=== PATIENT | male | born 1955 | race Caucasian/White ===

== ENCOUNTER 2018-05-10 09:32 | Day surgery (SDC) | payer BC ==
[2018-05-10] MEDS ORDERED: Dextrose 5%-Lactated Ringers 1,000 ML IV SCH (10:34)
[2018-05-10] MEDS ORDERED: Lidocaine 1% with EPINEPHrine 1:100,000 50 ML MDV ONE (13:01)
[2018-05-10] MEDS ORDERED: Bupivacaine 0.5% 50 ML MDV ONE (13:01)
[2018-05-10] MEDS ORDERED: Midazolam 1 MG/ML 2 ML SDV ONE (13:07)
[2018-05-10] MEDS ORDERED: fentaNYL 100 MCG/2 ML SDV ONE (13:07)
[2018-05-10] MEDS ORDERED: Propofol 200 MG/20 ML SDV ONE ×4 (13:07→14:10)
[2018-05-10] MEDS ORDERED: ceFAZolin 1 GM Vial ONE (13:41)
[2018-05-10] MEDS ORDERED: Ketorolac 60 MG/2 ML SDV ONE (13:43)
[2018-05-10] MEDS ORDERED: Lactated Ringers 1,000 ML ONE (14:13)
[2018-05-10] MEDS ORDERED: Meperidine PF 100 MG/ML Syringe IM ONE (15:04)
[2018-05-10] MEDS ORDERED: hydrOXYzine HCl 100 MG/2 ML SDV IM ONE (15:04)
[2018-05-10] MEDS ORDERED: Acetaminophen/oxyCODONE 325-5 MG Tab PO PRN (15:05)
[2018-05-10] MEDS ORDERED: hydrOXYzine HCl 100 MG/2 ML SDV ONE (15:05)
--- NOTE | 2018-05-14 12:26 | OR ---
DATE OF PROCEDURE: 05/10/2018 PREOPERATIVE DIAGNOSIS: Acute onset of right inguinal hernia. POSTOPERATIVE DIAGNOSES: 1. Incarcerated right inguinal hernia. 2. Iliohypogastric and ilioinguinal nerves at risk for scar entrapment and chronic postoperative pain. OPERATIVE PROCEDURES: 1. Open repair of incarcerated right inguinal hernia with mesh plug technique (99493). 2. Division of right iliohypogastric nerve (60563). 3. Division of right ilioinguinal nerve ([id number]). ANESTHESIA: Local plus IV sedation. ASSISTANTS: Ro Zaragoza PA-C, and LILY Lambert. INDICATION FOR PROCEDURE: The patient has a more or less an acute onset of painful right inguinal hernia. He wished to have this repaired prior to his return to his home in [place]. Plan is to proceed with an open repair of right inguinal hernia with mesh plug technique and we will divide the ilioinguinal and/or iliohypogastric nerves if it appears that these are only being field of the mesh placement to avoid postoperative neuropathic pain were gone over with the patient and , knowing that this results in some area of anesthesia around the area of the incision was reviewed. Additionally, potential risks of the procedure including bleeding, infection, injury to underlying viscera, possible recurrence of the hernia over time, mesh becoming infected and such were reviewed, and the patient wishes to proceed. DETAILS OF PROCEDURE: The patient was taken to the operating room and placed in a supine position. After IV sedation was administered, the right lower abdomen and groin areas were prepped and draped. The right inguinal area including the ilioinguinal nerve was anesthetized with 1% lidocaine mixed with Marcaine, and a standard right inguinal incision made and carried down through the skin and subcutaneous tissue and through the external oblique aponeurosis. Subaponeurotic flaps were then raised superiorly and inferiorly. Dissection of the cord structures revealed no indirect component to the hernia. The patient did have a large broad-based direct component which contained some incarcerated urinary bladder and bladder flap within it. The transversalis fascia floor was then divided, which allowed dissection and reduction of the area of herniation. Once the conjoined tendon was dissected free from the adjacent hernias location medially, superiorly, and laterally, and Seth's ligament identified, an extra large mesh plug was placed into the defect. This was affixed initially to the Seth's ligament with titanium tacking screws and the underside of the conjoined tendon medially, superiorly, and laterally with horizontal mattress sutures of 0 Vicryl stitch. At this point, the free edge of the conjoined tendon was tacked down to the shelving portion of the inguinal ligament with a running 0 Vicryl stitch. This was taken out to the point where the cord structures were present and the degree and extent of it at that point appeared to be lax enough that there would not be any significant venous congestion. At this point, the inguinal floor was then inspected for both the ilioinguinal nerve and hypogastric nerve coming into the field where the flat portion of the mesh plug system would be placed. These were then each sequentially dissected out to the far lateral aspect of the incision and divided there. The flat portion of the mesh plug system was then placed across the inguinal floor and affixed medially to the pubic tubercle with a titanium tacking screw and then sutured lateral to the cord structures with 3-0 Vicryl stitch. The external oblique aponeurosis was then approximated with a 3-0 Vicryl stitch as was Umer fascia and the skin closed with 4-0 Vicryl subcuticular stitch. Dressing was applied. The patient was taken to the recovery room in satisfactory condition. There were no evident complications. Physician assistant chief engineer, Ro Zaragoza, played an essential role in assisting in this case, helping with positioning the patient, retracting structures as needed, as well as suturing and cutting sutures as indicated. Her presence improved patient safety and decreased the operative time. Ronal Nation MD /[id number]
== END 2018-05-10 19:00 | disposition home or self-care (01) ==
LOC: JP.SDS 09:32
PROVIDERS: ATTEND Surgery
DX: K40.30 Unilateral inguinal hernia, with obstruction, without gangrene, not specified as recurrent (principal); Z88.1 Allergy status to other antibiotic agents
CPT/HCPCS: 36415; 49507; 64772; 80053; 83735; 84100; 85027; 93005; A9270; C1781; J0690; J1885; J2175; J2250; J2704; J3010; J3410; J3490; J7042; J7120

== ENCOUNTER 2019-09-01 23:38 | Emergency (ER) | payer OTHER ==
[2019-09-01] MEDS ORDERED: Sodium Chloride 0.9% 1,000 ML IV SCH (23:45)
[2019-09-01] MEDS ORDERED: Diltiazem 100 MG in Sodium Chloride 0.9% 100 ML IV SCH (23:45)
[2019-09-01] MEDS ORDERED: Sodium Chloride 0.9% 10 ML Syringe FLUSH PRN (23:50)
[2019-09-01] MEDS ORDERED: Diltiazem 25 MG/5 ML SDV IVPUSH ONE (23:51)
--- NOTE | 2019-09-01 23:53 | EDM.PDOC ---
ED HPI GENERAL MEDICAL PROBLEM - General Chief Complaint: Cardiovascular Problem Stated Complaint: A FIB Time Seen by Provider: 09/01/19 23:50 Source of Information: Reports: Patient, RN Notes Reviewed History Limitations: Reports: No Limitations - History of Present Illness INITIAL COMMENTS - FREE TEXT/NARRATIVE: 63-year-old gentleman presents emergency department a complaint of palpitations he does have a history of atrial fibrillation with RVR approximately 9 months prior did receive cardioversion as well as chemical treatment for that. He states this particular event started 1 hour prior to presentation he feels a heaviness in his chest he feels the palpitations but no nausea or vomiting no shortness of breath - Related Data Allergies Allergy/AdvReac Type Severity Reaction Status Date / Time ampicillin Allergy Itching Verified 09/01/19 23:52 Home Meds: Home Meds Dextroamphetamine/Amphetamine [Dextroamp-Amphetamin 20 mg Tab] 20 mg PO DAILY PRN 05/10/18 [History] Aspirin 81 mg PO DAILY 08/08/19 [History] Propafenone HCl [Propafenone] 2 tab PO ASDIRECTED 09/01/19 [History] Past Medical History HEENT History: Reports: Sinusitis Cardiovascular History: Reports: Afib Gastrointestinal History: Reports: Colon Polyp Musculoskeletal History: Reports: Back Pain, Chronic, Fracture, Other (See Below ) Other Musculoskeletal History: L knee injury 06/20/19 Psychiatric History: Reports: ADD - Infectious Disease History Infectious Disease History: Reports: Chicken Pox, Measles - Past Surgical History HEENT Surgical History: Reports: Naso-Sinus Surgery, Tonsillectomy GI Surgical History: Reports: Colonoscopy, Polypectomy Musculoskeletal Surgical History: Reports: None Social & Family History - Family History Cardiac: Reports: Angina, [place] Neurological: Reports: Dementia Psychiatric: Reports: Depression - Tobacco Use Smoking Status *Q: Never Smoker - Caffeine Use Caffeine Use: Reports: Coffee ED ROS GENERAL - Review of Systems Review Of Systems: See Below Constitutional: Reports: No Symptoms HEENT: Reports: No Symptoms Respiratory: Reports: No Symptoms Cardiovascular: Reports: Chest Pain, Palpitations GI/Abdominal: Reports: No Symptoms ED EXAM, GENERAL - Physical Exam Exam: See Below Exam Limited By: No Limitations General Appearance: Alert, Mild Distress Neck: Normal Inspection, Supple, Non-Tender, Full Range of Motion Respiratory/Chest: No Respiratory Distress, Lungs Clear, Normal Breath Sounds, No Accessory Muscle Use, Chest Non-Tender Cardiovascular: No Murmur, Tachycardia Course - Vital Signs Last Recorded V/S: Last Vital Signs Temp 98.4 F 09/02/19 00:28 Pulse 89 09/02/19 00:06 Resp 16 09/02/19 01:15 BP 113/66 09/02/19 01:15 Pulse Ox 91 L 09/02/19 01:15 - Orders/Labs/Meds Orders: Active Orders 24 hr Category Date Time Status Cardiac Monitoring [RC] .As Directed Care 09/01/19 23:50 Active EKG Documentation Completion [RC] ASDIRECTED Care 09/01/19 23:51 Active Peripheral IV Care [RC] . DIRECTED Care 09/01/19 23:51 Active Diltiazem [Cardizem] 100 mg Med 09/01/19 23:45 Active Sodium Chloride 0.9% [Normal Saline] 100 ml IV TITRATE Sodium Chloride 0.9% [Normal Saline] 1,000 ml Med 09/01/19 23:45 Active IV ASDIRECTED Sodium Chloride 0.9% [Saline Flush] Med 09/01/19 23:50 Active 10 ml FLUSH ASDIRECTED PRN ED Antiarrhythmia Med Reflex [OM.PC] Stat Oth 09/01/19 23:50 Ordered Peripheral IV Insertion Adult [OM.PC] Stat Oth 09/01/19 23:50 Ordered EKG 12 Lead [EK] Stat Ther 09/01/19 23:51 Ordered Medication Orders Sodium Chloride (Normal Saline) 1,000 mls @ 125 mls/hr IV ASDIRECTED ABDOULAYE Last Admin: 09/02/19 00:06 Dose: 125 mls/hr Diltiazem HCl 100 mg/ Sodium (Chloride) 100 mls @ 5 mls/hr IV TITRATE ABDOULAYE; Protocol Last Titration: 09/02/19 00:44 Dose: 0 mg/hr, 0 mls/hr Admin: 09/02/19 00:06 Dose: 5 mg/hr, 5 mls/hr Sodium Chloride (Saline Flush) 10 ml FLUSH ASDIRECTED PRN PRN Reason: Keep Vein Open Last Admin: 09/02/19 00:06 Dose: 10 ml Labs: Laboratory Tests 09/01/19 09/01/19 09/01/19 Range/Units 23:55 23:55 23:55 WBC 7.3 (4.5-11.0) K/uL RBC 4.69 (4.30-5.90) M/uL Hgb 14.9 (12.0-15.0) g/dL Hct 44.5 (40.0-54.0) % MCV 95 (80-98) fL MCH 32 H (27-31) pg MCHC 34 (32-36) % Plt Count 249 (150-400) K/uL Neut % (Auto) 55 (36-66) % Lymph % (Auto) 31 (24-44) % [place] % (Auto) 9 H (2-6) % Eos % (Auto) 4 (2-4) % Baso % (Auto) 1 (0-1) % PT 10.0 (9.5-12.0) sec INR 0.92 (0.80-1.20) APTT 25.5 L (27.0-36.0) sec Sodium 143 (140-148) mmol/L Potassium 4.0 (3.6-5.2) mmol/L Chloride 105 (100-108) mmol/L Carbon Dioxide 24 (21-32) mmol/L Anion Gap 14.3 H (5.0-14.0) mmol/L BUN 20 H (7-18) mg/dL Creatinine 0.9 (0.8-1.3) mg/dL Est Cr Clr Drug Dosing 88.31 mL/min Estimated GFR (MDRD) > 60 (>60) Glucose 117 H (74-106) mg/dL Calcium 8.8 (8.5-10.1) mg/dL Total Bilirubin 0.4 (0.2-1.0) mg/dL AST 23 (15-37) U/L ALT 39 (12-78) U/L Alkaline Phosphatase 74 (46-116) U/L Troponin I < 0.017 (0.000-0.056) ng/mL Total Protein 7.1 (6.4-8.2) g/dL Albumin 3.9 (3.4-5.0) g/dL Globulin 3.2 (2.3-3.5) g/dL Albumin/Globulin Ratio 1.2 (1.2-2.2) Meds: Medications Generic Name Dose Route Start Last Admin Trade Name Freq PRN Reason Stop Dose Admin Sodium Chloride 1,000 mls @ 125 mls/hr 09/01/19 23:45 09/02/19 00:06 Normal Saline IV 125 mls/hr ASDIRECTED ABDOULAYE Administration Diltiazem HCl 100 mg/ Sodium 100 mls @ 5 mls/hr 09/01/19 23:45 09/02/19 00:44 Chloride IV 0 mg/hr TITRATE ABDOULAYE 0 mls/hr Titration Protocol 5 MG/HR Sodium Chloride 10 ml 09/01/19 23:50 09/02/19 00:06 Saline Flush FLUSH 10 ml ASDIRECTED PRN Administration Keep Vein Open Discontinued Medications Generic Name Dose Route Start Last Admin Trade Name Freq PRN Reason Stop Dose Admin Diltiazem HCl 25 mg 09/01/19 23:51 09/02/19 00:06 Diltiazem IVPUSH 09/01/19 23:52 25 mg ONETIME ONE Administration Departure - Departure Time of Disposition: 02:17 Disposition: Home, Self-Care 01 Condition: Fair Clinical Impression: Atrial fibrillation with RVR Instructions: Atrial Fibrillation Referrals: PCP,None [Primary Care Provider] - Forms: ED Department Discharge Additional Instructions: Continue continue with your daily aspirin try the Cardizem LA 1 tablet once a day 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 or return to the emergency department worsening of symptoms Sepsis Event Note - Focused Exam Vital Signs: Vital Signs Temp Pulse Resp BP Pulse Ox 09/02/19 01:15 16 113/66 91 L 09/02/19 00:46 12 125/71 95 09/02/19 00:28 98.4 F 17 123/63 96 09/02/19 00:06 89 16 113/59 L 95 09/01/19 23:45 98.4 F 151 H 17 113/60 91 L Date Exam was Performed: 09/02/19 Time Exam was Performed: 02:16 - My Orders Last 24 Hours: My Active Orders 09/01/19 23:45 Diltiazem [Cardizem] 100 mg Sodium Chloride 0.9% [Normal Saline] 100 ml IV TITRATE Sodium Chloride 0.9% [Normal Saline] 1,000 ml IV ASDIRECTED 09/01/19 23:50 Cardiac Monitoring [RC] .As Directed Sodium Chloride 0.9% [Saline Flush] 10 ml FLUSH ASDIRECTED PRN ED Antiarrhythmia Med Reflex [OM.PC] Stat Peripheral IV Insertion Adult [OM.PC] Stat 09/01/19 23:51 EKG Documentation Completion [RC] ASDIRECTED Peripheral IV Care [RC] . DIRECTED EKG 12 Lead [EK] Stat - Assessment/Plan Last 24 Hours: My Active Orders 09/01/19 23:45 Diltiazem [Cardizem] 100 mg Sodium Chloride 0.9% [Normal Saline] 100 ml IV TITRATE Sodium Chloride 0.9% [Normal Saline] 1,000 ml IV ASDIRECTED 09/01/19 23:50 Cardiac Monitoring [RC] .As Directed Sodium Chloride 0.9% [Saline Flush] 10 ml FLUSH ASDIRECTED PRN ED Antiarrhythmia Med Reflex [OM.PC] Stat Peripheral IV Insertion Adult [OM.PC] Stat 09/01/19 23:51 EKG Documentation Completion [RC] ASDIRECTED Peripheral IV Care [RC] . DIRECTED EKG 12 Lead [EK] Stat Plan: Assessment Acuity = acute Site and laterality = atrial fibrillation with rapid ventricular response with conversion to sinus rhythm Etiology = unknown Manifestations = palpitations now resolved Location of injury = Home Lab values = CBC, CMP, troponin all negative initial EKG demonstrates rapid ventricular response postconversion shows normal sinus rhythm no signs of ST elevation or depression Plan He remained in sinus rhythm after the Cardizem drip was turned off for about an hour and a half prescription written for Cardizem LA 120 mg 1 tab p.o. daily he is got a follow-up with cardiology upon return home continue baby aspirin for anticoagulant chads score was 0 This note was dictated using [employer] voice recognition software please call with any questions on syntax or grammar.
== END 2019-09-02 02:33 | disposition home or self-care (01) ==
LOC: JP.ED 23:38
DX: I48.91 Unspecified atrial fibrillation (principal); Z88.1 Allergy status to other antibiotic agents; Z79.82 Long term (current) use of aspirin; Z79.899 Other long term (current) drug therapy
CPT/HCPCS: 36415; 80053; 84484; 85025; 85610; 85730; 93005; 96365; 96366; 96376; 99285; J3490; J7030; J7050

== ENCOUNTER 2020-01-04 23:00 | Inpatient (IN) | payer OTHER ==
--- NOTE | 2020-01-05 00:09 | EDM.PDOC ---
ED HPI GENERAL MEDICAL PROBLEM - General Chief Complaint: Cardiovascular Problem Stated Complaint: AFIB Time Seen by Provider: 01/05/20 00:05 Source of Information: Reports: Patient, Family, Old Records, RN History Limitations: Reports: No Limitations - History of Present Illness INITIAL COMMENTS - FREE TEXT/NARRATIVE: 64 yo male with a pHx of known afib presents back in afib with RVR. He is very confident that the rapid HR began about 10 pm tonight. He denies CP or SOB or dizziness. He took extra doses of his propafenone tonight without benefit. Drinks on average 3 drinks of alcohol per night. 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: Other Medication(s), Other (see below) (See HPI) - Related Data Allergies Allergy/AdvReac Type Severity Reaction Status Date / Time ampicillin Allergy Itching Verified 09/01/19 23:52 Home Meds: Home Meds Dextroamphetamine/Amphetamine [Dextroamp-Amphetamin 20 mg Tab] 20 mg PO DAILY PRN 05/10/18 [History] Aspirin 81 mg PO DAILY 08/08/19 [History] Propafenone HCl [Propafenone] 2 tab PO ASDIRECTED PRN 09/01/19 [History] Diltiazem [Cardizem] 120 mg PO ASDIRECTED 01/04/20 [History] Past Medical History HEENT History: Reports: Sinusitis Cardiovascular History: Reports: Afib Gastrointestinal History: Reports: Colon Polyp Musculoskeletal History: Reports: Back Pain, Chronic, Fracture, Other (See Below) Other Musculoskeletal History: L knee injury 06/20/19 Psychiatric History: Reports: ADD - Infectious Disease History Infectious Disease History: Reports: Chicken Pox, Measles, Mumps - Past Surgical History HEENT Surgical History: Reports: Naso-Sinus Surgery, Tonsillectomy GI Surgical History: Reports: Colonoscopy, Polypectomy Musculoskeletal Surgical History: Reports: None Social & Family History - Family History Cardiac: Reports: Angina, [place] Neurological: Reports: Dementia Psychiatric: Reports: Depression - Tobacco Use Smoking Status *Q: Never Smoker Second Hand Smoke Exposure: No - Caffeine Use Caffeine Use: Reports: Coffee Other Caffeine Use: 1 cup daily - Alcohol Use Days Per Week of Alcohol Use: 7 Number of Drinks Per Day: 3 Total Drinks Per Week: 21 Date of Last Drink: 01/04/20 Time of Last Drink: 22:00 - Recreational Drug Use Recreational Drug Use: No ED ROS GENERAL - Review of Systems Review Of Systems: See Below Constitutional: Reports: No Symptoms HEENT: Reports: No Symptoms Respiratory: Reports: No Symptoms Cardiovascular: Reports: Palpitations GI/Abdominal: Reports: No Symptoms : Reports: No Symptoms Musculoskeletal: Reports: No Symptoms Skin: Reports: No Symptoms Neurological: Reports: No Symptoms ED EXAM, GENERAL - Physical Exam Exam: See Below Exam Limited By: No Limitations General Appearance: Alert, WD/WN, No Apparent Distress Eye Exam: Bilateral Eye: Normal Inspection Ears: Normal External Exam, Normal Canal, Hearing Grossly Normal, Normal TMs Ear Exam: Bilateral Ear: Auricle Normal, Canal Normal Nose: Normal Inspection, No Blood Throat/Mouth: Normal Inspection, Normal Lips, Normal Oropharynx, Normal Voice, No Airway Compromise Head: Atraumatic, Normocephalic Neck: Normal Inspection Respiratory/Chest: No Respiratory Distress, Lungs Clear, Normal Breath Sounds, No Accessory Muscle Use Cardiovascular: No Edema, Tachycardia, Irregularly Irregular GI/Abdominal: Normal Bowel Sounds, Soft, Non-Tender, No Distention Back Exam: Normal Inspection. No: CVA Tenderness (R), CVA Tenderness (L) Extremities: Normal Inspection, Normal Range of Motion, Non-Tender, No Pedal Edema Neurological: Alert, Oriented, CN II-XII Intact, Normal Cognition, No Motor/Sensory Deficits Psychiatric: Normal Affect, Normal Mood Skin Exam: Warm, Dry, Intact, Normal Color, No Rash EKG INTERPRETATION EKG Date: 01/05/20 Time: 23:15 Rhythm: A-Fib Rate (Beats/Min): 135 [place]: Normal P-Wave: Absent QRS: Normal ST-T: Normal QT: Prolonged Comparison: Change From Previous EKG (last EKG showed NSR) Course - Vital Signs Last Recorded V/S: Last Vital Signs Temp 36.2 C 01/05/20 00:02 Pulse 140 H 01/05/20 00:02 Resp 19 01/05/20 00:02 BP 104/76 01/05/20 00:02 Pulse Ox 93 L 01/05/20 00:02 - Orders/Labs/Meds Orders: Active Orders 24 hr Category Date Time Status Cardiac Monitoring [RC] .As Directed Care 01/05/20 00:07 Active BASIC METABOLIC PANEL,BMP [CHEM] Stat Lab 01/05/20 00:20 Results TROPONIN I [CHEM] Stat Lab 01/05/20 00:20 Results TSH ULTRASENSITIVE [CHEM] Stat Lab 01/05/20 00:20 Results Sodium Chloride 0.9% [Saline Flush] Med 01/05/20 00:18 Active 10 ml FLUSH ASDIRECTED PRN Saline Lock Insert [OM.PC] Routine Oth 01/05/20 00:18 Ordered Medication Orders Sodium Chloride (Saline Flush) 10 ml FLUSH ASDIRECTED PRN PRN Reason: Keep Vein Open Labs: Laboratory Tests 01/05/20 01/05/20 Range/Units 00:20 00:20 WBC 7.2 (4.5-11.0) K/uL RBC 4.46 (4.30-5.90) M/uL Hgb 14.1 (12.0-15.0) g/dL Hct 42.3 (40.0-54.0) % MCV 95 (80-98) fL MCH 32 H (27-31) pg MCHC 33 (32-36) % Plt Count 212 (150-400) K/uL Sodium 139 L (140-148) mmol/L Potassium 3.6 (3.6-5.2) mmol/L Chloride 103 (100-108) mmol/L Carbon Dioxide 24 (21-32) mmol/L Anion Gap 15.6 H (5.0-14.0) mmol/L BUN 20 H (7-18) mg/dL Creatinine 0.9 (0.8-1.3) mg/dL Est Cr Clr Drug Dosing 87.15 mL/min Estimated GFR (MDRD) > 60 (>60) Glucose 117 H (74-106) mg/dL Calcium 9.0 (8.5-10.1) mg/dL Troponin I < 0.017 (0.000-0.056) ng/mL Meds: Medications Generic Name Dose Route Start Last Admin Trade Name Freq PRN Reason Stop Dose Admin Sodium Chloride 10 ml 01/05/20 00:18 Saline Flush FLUSH ASDIRECTED PRN Keep Vein Open Discontinued Medications Generic Name Dose Route Start Last Admin Trade Name Jaretq PRN Reason Stop Dose Admin Diltiazem HCl 25 mg 01/05/20 00:52 Diltiazem IVPUSH 01/05/20 00:53 ONETIME ONE Midazolam HCl 5 mg 01/05/20 00:22 Versed 1 Mg/Ml IVPUSH 01/05/20 00:23 ONETIME ONE Midazolam HCl 5 mg 01/05/20 00:36 Versed 1 Mg/Ml IVPUSH 01/05/20 00:37 ONETIME ONE - Re-Assessments/Exams Free Text/Narrative Re-Assessment/Exam: 01/05/20 00:53 Was successfully cardioverted to NSR, but within about 5 min converted back to afib. Versed 5 mg IV used for sedation. Dr. Jerez here for the cardioversion procedure. Will admit for rate control with diltiazem. 01/05/20 00:55 Departure - Departure Time of Disposition: 01:00 Disposition: Admitted As Inpatient 65 Condition: Fair Clinical Impression: Atrial fibrillation with RVR Referrals: PCP,None [Primary Care Provider] - Forms: ED Department Discharge Sepsis Event Note (ED) - Evaluation Sepsis Screening Result: No Definite Risk - Focused Exam Vital Signs: Vital Signs Temp Pulse Resp BP Pulse Ox 01/05/20 00:02 36.2 C 140 H 19 104/76 93 L 01/04/20 23:51 36.2 C 140 H 19 104/76 93 L - My Orders Last 24 Hours: My Active Orders 01/05/20 00:07 Cardiac Monitoring [RC] .As Directed 01/05/20 00:18 Sodium Chloride 0.9% [Saline Flush] 10 ml FLUSH ASDIRECTED PRN Saline Lock Insert [OM.PC] Routine 01/05/20 00:20 BASIC METABOLIC PANEL,BMP [CHEM] Stat TROPONIN I [CHEM] Stat TSH ULTRASENSITIVE [CHEM] Stat - Assessment/Plan Last 24 Hours: My Active Orders 01/05/20 00:07 Cardiac Monitoring [RC] .As Directed 01/05/20 00:18 Sodium Chloride 0.9% [Saline Flush] 10 ml FLUSH ASDIRECTED PRN Saline Lock Insert [OM.PC] Routine 10/04/20 00:20 BASIC METABOLIC PANEL,BMP [CHEM] Stat TROPONIN I [CHEM] Stat TSH ULTRASENSITIVE [CHEM] Stat
[2020-01-05] MEDS ORDERED: Sodium Chloride 0.9% 10 ML Syringe FLUSH PRN ×2 (00:18→02:36)
[2020-01-05] MEDS ORDERED: Midazolam 1 MG/ML 5 ML SDV IVPUSH ONE ×2 (00:22→00:36)
[2020-01-05] MEDS ORDERED: Diltiazem 25 MG/5 ML SDV IVPUSH ONE (00:52)
[2020-01-05] MEDS ORDERED: Diltiazem 100 MG in Sodium Chloride 0.9% 100 ML IV SCH (02:00)
--- NOTE | 2020-01-05 02:08 | PCM.HP.2 ---
H&P History of Present Illness - General Date of Service: 01/05/20 Admit Problem/Dx: Admission Diagnosis/Problem Admission Diagnosis/Problem Atrial fibrillation Source of Information: Family, Provider, RN Notes Reviewed History Limitations: Reports: No Limitations - History of Present Illness Initial Comments - Free Text/Narative: Mr. Rowan is a 64-year-old gentleman who was admitted through the emergency department with palpitations secondary to atrial fibrillation with rapid ventricular response. He has had a history of atrial fibrillation, 2 previous episodes. He does take diltiazem long-acting 120 mg every other day. Patient is currently sedated after attempted cardioversion and unable to provide meaningful information concerning her recent symptoms or events. History is obtained from his who is present. She reports that he had no significant symptoms during the day but did note onset of rapid heart rate this evening. On evaluation in the emergency department he was noted to be in atrial fibrillation with rapid ventricular response. He did undergo attempted electrical cardioversion and was successfully cardioverted to sinus rhythm, shortly th ereafter he returned to atrial fibrillation with rapid ventricular response. He has been given 20 mg of diltiazem IV and heart rate has improved although he is remained in atrial fibrillation. There is been no recent symptoms of chest pain or pressure dyspnea PND orthopnea peripheral edema syncope. - Related Data Allergies/Adverse Reactions: Allergies Allergy/AdvReac Type Severity Reaction Status Date / Time ampicillin Allergy Itching Verified 09/01/19 23:52 Home Medications: Home Meds Dextroamphetamine/Amphetamine [Dextroamp-Amphetamin 20 mg Tab] 20 mg PO DAILY PRN 05/10/18 [History] Aspirin 81 mg PO DAILY 08/08/19 [History] Propafenone HCl [Propafenone] 2 tab PO ASDIRECTED PRN 09/01/19 [History] Diltiazem [Cardizem] 120 mg PO ASDIRECTED 01/04/20 [History] Past Medical History HEENT History: Reports: Sinusitis Cardiovascular History: Reports: Afib Gastrointestinal History: Reports: Colon Polyp Musculoskeletal History: Reports: Back Pain, Chronic, Fracture, Other (See Below) Other Musculoskeletal History: L knee injury 06/20/19 Psychiatric History: Reports: ADD - Infectious Disease History Infectious Disease History: Reports: Chicken Pox, Measles, Mumps - Past Surgical History HEENT Surgical History: Reports: Naso-Sinus Surgery, Tonsillectomy GI Surgical History: Reports: Colonoscopy, Polypectomy Musculoskeletal Surgical History: Reports: None Social & Family History - Family History Cardiac: Reports: Ang[place], [place] Neurological: Reports: Dementia Psychiatric: Reports: Depression - Tobacco Use Smoking Status *Q: Never Smoker Second Hand Smoke Exposure: No - Caffeine Use Caffeine Use: Reports: Coffee Other Caffeine Use: 1 cup daily - Alcohol Use Days Per Week of Alcohol Use: 7 Number of Drinks Per Day: 3 Total Drinks Per Week: 21 Date of Last Drink: 01/04/20 Time of Last Drink: 22:00 - Recreational Drug Use Recreational Drug Use: No H&P Review of Systems - Review of Systems: Review Of Systems: See Below General: Reports: ROS unobtainable (Secondary to sedation) Exam - Exam Exam: See Below - Vital Signs Vital Signs: Last Vital Signs Temp 97.1 F 01/05/20 00:02 Pulse 140 H 01/05/20 00:02 Resp 19 01/05/20 00:02 BP 104/76 01/05/20 00:02 Pulse Ox 93 L 01/05/20 00:02 Weight: 208 lb 8.917 oz - Exam Quality Assessment: Supplemental Oxygen, DVT Prophylaxis General: Sedated, Lethargic HEENT: Conjunctiva Clear, Mucosa Moist & [place], Normal Nasal Septum, Posterior Pharynx Clear, Pupils Equal Neck: Supple, Trachea Midline, +2 Carotid Pulse wo Bruit Lungs: Clear to Auscultation, Normal Respiratory Effort Cardiovascular: Irregular Rhythm, Tachycardia. No: Systolic Murmur, Diastolic Murmur GI/Abdominal Exam: Soft, Non-Tender, No Organomegaly, No Distention Back Exam: Normal Inspection, Full Range of Motion Extremities: Non-Tender, No Pedal Edema Skin: Warm, Dry, Intact Neurological: Cranial Nerves Intact Neuro Extensive - Mental Status: Alert, Oriented x3, Normal Mood/Affect, Normal Cognition, Memory Intact - Patient Data Lab Results Last 24 hrs: Laboratory Results - last 24 hr 01/05/20 01/05/20 Range/Units 00: 00:20 WBC 7.2 (4.5-11.0) K/uL RBC 4.46 (4.30-5.90) M/uL Hgb 14.1 (12.0-15.0) g/dL Hct 42.3 (40.0-54.0) % MCV 95 (80-98) fL MCH 32 H (27-31) pg MCHC 33 (32-36) % Plt Count 212 (150-400) K/uL Sodium 139 L (140-148) mmol/L Potassium 3.6 (3.6-5.2) mmol/L Chloride 103 (100-108) mmol/L Carbon Dioxide 24 (21-32) mmol/L Anion Gap 15.6 H (5.0-14.0) mmol/L BUN 20 H (7-18) mg/dL Creatinine 0.9 (0.8-1.3) mg/dL Est Cr Clr Drug Dosing 87.15 mL/min Estimated GFR (MDRD) > 60 (>60) Glucose 117 H (74-106) mg/dL Calcium 9.0 (8.5-10.1) mg/dL Troponin I < 0.017 (0.000-0.056) ng/mL TSH, Ultra Sensitive 4.276 H (0.358-3.740) uIU/mL Result Diagrams: 01/05/20 00:20 01/05/20 00:20 Sepsis Event Note - Evaluation Sepsis Screening Result: No Definite Risk - Focused Exam Vital Signs: Vital Signs Temp Pulse Resp BP Pulse Ox 01/05/20 00:02 97.1 F 140 H 19 104/76 93 L 01/04/20 23:51 97.1 F 140 H 19 104/76 93 L *Q Meaningful Use (ADM) - VTE Risk Assess *Q Each Risk Factor Represents 1 Point: Obesity ( BMI > 25 kg/m2) Total Score 1 Point Risk Factors: 1 Each Risk Factor Represents 2 Points: Age 60 - 74 Years Total Score 2 Point Risk Factors: 2 Each Risk Factor Represents 3 Points: None Total Score 3 Point Risk Factors: 0 Each Risk Factor Represents 5 Points: None Total Score 5 Point Risk Factors: 0 Venous Thromboembolism Risk Factor Score *Q: 3 Problem List Initiated/Reviewed/Updated: Yes Orders Last 24hrs: Active Orders 24 hr Category Date Time Status Patient Status Manage Transfer [TRANSFER] Routine ADT 01/05/20 01:50 Ordered Cardiac Monitoring [RC] .As Directed Care 01/05/20 00:07 Active Diltiazem [Cardizem] 100 mg Med 01/05/20 02:00 Ordered Sodium Chloride 0.9% [Normal Saline] 100 ml IV TITRATE Sodium Chloride 0.9% [Saline Flush] Med 01/05/20 00:18 Active 10 ml FLUSH ASDIRECTED PRN Saline Lock Insert [OM.PC] Routine Oth 01/05/20 00:18 Ordered Resuscitation Status Routine Resus Stat 01/05/20 01:52 Ordered Medication Orders Diltiazem HCl 100 mg/ Sodium (Chloride) 100 mls @ 5 mls/hr IV TITRATE ABODULAYE; Protocol Sodium Chloride (Saline Flush) 10 ml FLUSH ASDIRECTED PRN PRN Reason: Keep Vein Open Assessment/Plan Comment:: ASSESSMENT AND PLAN ATRIAL FIBRILLATION WITH RAPID VENTRICULAR RESPONSE-this is his third episode over the past 10 months. He is on low-dose long-acting diltiazem every other day. Attempted cardioversion in the emergency department failed, and he went back into atrial fibrillation. Calculated [id number] score is 1. -Diltiazem 20 mg IV given in the emergency department -Continuous infusion of diltiazem per protocol -N.p.o. for possible cardioversion in a.m. -Outpatient follow-up with EP cardiology SLEEP APNEA-he has had a recent sleep study documenting sleep apnea, but has not yet started on CPAP. MAINTENANCE ISSUES -DVT prophylaxis; Lovenox 40 mg subcu daily -GI prophylaxis; not indicated -Verduzco catheter; not indicated -Nutrition; n.p.o. until a.m. -Nicotine dependence; not required CODE STATUS-FULL CODE ADMISSION STATUS-patient will be admitted to inpatient status, expect at least a 2 night hospital stay for evaluation and management of problems as outlined above. At the time of this admission I do not reasonably expected evaluation and management of this problem will require more than a 96 hour hospital stay. DISPOSITION-anticipate discharge to home after the hospital stay. PRIMARY CARE PROVIDER-Dr. Mo - Mortality Measure Prognosis:: Good
[2020-01-05] MEDS ORDERED: Polyethylene Glycol 3350 Powder 17 GM Packet PO PRN (02:36)
[2020-01-05] MEDS ORDERED: Sodium Chloride 0.9% 1,000 ML IV SCH (02:36)
[2020-01-05] MEDS ORDERED: Acetaminophen 325 MG Tab PO PRN (02:36)
[2020-01-05] MEDS ORDERED: Ondansetron 4 MG/2 ML SDV IV PRN (02:36)
[2020-01-05] MEDS ORDERED: Aspirin 81 MG Tab.Chew PO SCH (09:00)
[2020-01-05] MEDS ORDERED: Enoxaparin 40 MG/0.4 ML Syringe SUBCUT SCH (09:00)
--- NOTE | 2020-01-05 09:17 | PCM.DCSUM1 ---
Discharge Summary - Hospital Course Brief History: Mr. Rowan is a 64-year-old gentleman who was admitted through the emergency department with palpitations secondary to atrial fibrillation with rapid ventricular response. - Discharge Data Discharge Date: 01/05/20 Discharge Disposition: Home, Self-Care 01 Condition: Good - Referral to Home Health Primary Care Physician: PCP None - Discharge Diagnosis/Problem(s) (1) Atrial fibrillation with RVR SNOMED Code(s): 420327611549688 ICD Code: I48.91 - UNSPECIFIED ATRIAL FIBRILLATION Status: Acute Current Visit: Yes - Patient Summary/Data Hospital Course: Mr. Rowan is a 64-year-old gentleman who was admitted through the emergency department with palpitations secondary to atrial fibrillation with rapid ventricular response. He has had a history of atrial fibrillation, 2 previous episodes. He does take diltiazem long-acting 120 mg every other day. Patient is currently sedated after attempted cardioversion and unable to provide meaningful information concerning recent symptoms or events. History is obtained from his who is present. She reports that he had no significant symptoms during the day but did note onset of rapid heart rate this evening. On evaluation in the emergency department he was noted to be in atrial fibrillation with rapid ventricular response. He did undergo attempted electrical cardioversion and was successfully cardioverted to sinus rhythm, shortly thereafter he returned to atrial fibrillation with rapid ventricular response. He has been given 20 mg of diltiazem IV and heart rate has improved although he is remained in atrial fibrillation. There is been no recent symptoms of chest pain or pressure dyspnea PND orthopnea peripheral edema syncope. He after he received diltiazem bolus IV he converted to sinus rhythm and remained in sinus rhythm through the duration of his hospitalization. He was feeling well in the morning of discharge other than some ongoing nasal congestion likely related to allergies. Activity will be as tolerated and he will resume his usual diet. He is encouraged to decrease or stop alcohol intake and he is proceeding with management of his sleep apnea will be getting CPAP later this month. He will follow-up with his voting machine mechanic by phone tomorrow. He will increase his dose of diltiazem CD to 120 mg daily. - Patient Instructions Diet: Usual Diet as Tolerated Activity: As Tolerated Other/Special Instructions: Patient will follow-up with his voting machine mechanic by phone tomorrow - Discharge Plan *PRESCRIPTION DRUG MONITORING PROGRAM REVIEWED*: Not Applicable *COPY OF PRESCRIPTION DRUG MONITORING REPORT IN PATIENT [place]QUIDEA: Not Applicable Home Medications: Home Meds Dextroamphetamine/Amphetamine [Dextroamp-Amphetamin 20 mg Tab] 20 mg PO DAILY PRN 05/10/18 [History] Aspirin 81 mg PO DAILY 08/08/19 [History] Propafenone HCl [Propafenone] 2 tab PO ASDIRECTED PRN 09/01/19 [History] Diltiazem [Cardizem] 120 mg PO DAILY #0 01/05/20 [Rx] Referrals: Gladis Mo DO [Physician] - - Discharge Summary/Plan Comment DC Time >30 min.: No - Patient Data Vitals - Most Recent: Last Vital Signs Temp 98 F 01/05/20 08:00 Pulse 140 H 01/05/20 00:02 Resp 12 01/05/20 08:00 BP 119/69 01/05/20 08:00 Pulse Ox 98 01/05/20 08:00 Weight - Most Recent: 208 lb 8.917 oz Lab Results - Last 24 hrs: Laboratory Results - last 24 hr 01/05/20 01/05/20 01/05/20 Range/Units 00:20 00:20 05:11 WBC 7.2 5.4 (4.5-11.0) K/uL RBC 4.46 4.21 L (4.30-5.90) M/uL Hgb 14.1 12.9 (12.0-15.0) g/dL Hct 42.3 40.1 (40.0-54.0) % MCV 95 95 (80-98) fL MCH 32 H 31 (27-31) pg MCHC 33 32 (32-36) % Plt Count 212 198 (150-400) K/uL Neut % (Auto) 58 (36-66) % Lymph % (Auto) 28 (24-44) % [place] % (Auto) 9 H (2-6) % Eos % (Auto) 4 (2-4) % Baso % (Auto) 1 (0-1) % Sodium 139 L (140-148) mmol/L Potassium 3.6 (3.6-5.2) mmol/L Chloride 103 (100-108) mmol/L Carbon Dioxide 24 (21-32) mmol/L Anion Gap 15.6 H (5.0-14.0) mmol/L BUN 20 H (7-18) mg/dL Creatinine 0.9 (0.8-1.3) mg/dL Est Cr Clr Drug Dosing 87.15 mL/min Estimated GFR (MDRD) > 60 (>60) Glucose 117 H (74-106) mg/dL Calcium 9.0 (8.5-10.1) mg/dL Magnesium (1.8-2.4) mg/dL Troponin I < 0.017 (0.000-0.056) ng/mL TSH, Ultra Sensitive 4.276 H (0.358-3.740) uIU/mL 01/05/20 Range/Units 05:14 WBC (4.5-11.0) K/uL RBC (4.30-5.90) M/uL Hgb (12.0-15.0) g/dL Hct (40.0-54.0) % MCV (80-98) fL MCH (27-31) pg MCHC (32-36) % Plt Count (150-400) K/uL Neut % (Auto) (36-66) % Lymph % (Auto) (24-44) % [place] % (Auto) (2-6) % Eos % (Auto) (2-4) % Baso % (Auto) (0-1) % Sodium 140 (140-148) mmol/L Potassium 3.7 (3.6-5.2) mmol/L Chloride 106 (100-108) mmol/L Carbon Dioxide 25 (21-32) mmol/L Anion Gap 9.4 (5.0-14.0) mmol/L BUN 16 (7-18) mg/dL Creatinine 0.8 (0.8-1.3) mg/dL Est Cr Clr Drug Dosing 98.05 mL/min Estimated GFR (MDRD) > 60 (>60) Glucose 108 H (74-106) mg/dL Calcium 8.1 L (8.5-10.1) mg/dL Magnesium 1.9 (1.8-2.4) mg/dL Troponin I (0.000-0.056) ng/mL TSH, Ultra Sensitive (0.358-3.740) uIU/mL Med Orders - Current: Current Medications Acetaminophen (Tylenol) 650 mg PO Q4H PRN PRN Reason: Pain (Mild 1-3)/fever Aspirin (Aspirin) 81 mg PO DAILY [facility] Enoxaparin Sodium (Lovenox) 40 mg SUBCUT DAILY [facility] Diltiazem HCl 100 mg/ Sodium (Chloride) 100 mls @ 5 mls/hr IV TITRATE ABDOULAYE; Protocol Sodium Chloride (Normal Saline) 1,000 mls @ 75 mls/hr IV ASDIRECTED [facility] Dextroamphetamine/Amphetamine [ Dextroamp-Amphetamin 20 Mg 20 mg PO DAILY PRN PRN Reason: add Ondansetron HCl (Zofran) 4 mg IV Q4H PRN PRN Reason: Nausea/Vomiting Polyethylene Glycol (Miralax) 17 gm PO DAILY PRN PRN Reason: Constipation Sodium Chloride (Saline Flush) 10 ml FLUSH ASDIRECTED PRN PRN Reason: Keep Vein Open Discontinued Medications Diltiazem HCl (Diltiazem) 25 mg IVPUSH ONETIME ONE Stop: 01/05/20 00:53 Last Admin: 01/05/20 01:09 Dose: 25 mg Documented by: Midazolam HCl (Versed 1 Mg/Ml) 5 mg IVPUSH ONETIME ONE Stop: 01/05/20 00:23 Last Admin: 01/05/20 00:45 Dose: 5 mg Documented by: Midazolam HCl (Versed 1 Mg/Ml) 5 mg IVPUSH ONETIME ONE Stop: 01/05/20 00:37 Last Admin: 01/05/20 02:41 Dose: Not Given Documented by: Sodium Chloride (Saline Flush) 10 ml FLUSH ASDIRECTED PRN PRN Reason: Keep Vein Open - Exam Quality Assessment: Reports: DVT Prophylaxis General: Reports: Alert, Oriented, Cooperative, No Acute Distress Lungs: Reports: Clear to Auscultation, Normal Respiratory Effort Cardiovascular: Reports: Regular Rate, Regular Rhythm, No Murmurs GI/Abdominal Exam: Soft, Non-Tender, No Organomegaly, No Distention
== END 2020-01-05 09:57 | disposition home or self-care (01) | DRG 310 ==
LOC: JP.ED 23:00 → JP.ICU 01-05 01:50
PROVIDERS: ADMIT Hospitalist; ATTEND Hospitalist
PROC: 5A2204Z Restoration of Cardiac Rhythm, Single (ICD-10-PCS; principal; 2020-01-05)
DX: I48.91 Unspecified atrial fibrillation (principal); G47.00 Insomnia, unspecified; G89.29 Other chronic pain; M54.9 Dorsalgia, unspecified; F98.8 Other specified behavioral and emotional disorders with onset usually occurring in childhood and adolescence; Z79.82 Long term (current) use of aspirin; Z79.899 Other long term (current) drug therapy; Z88.1 Allergy status to other antibiotic agents; Z86.010 Personal history of colon polyps; Z90.89 Acquired absence of other organs; Z98.890 Other specified postprocedural states
CPT/HCPCS: 36415; 80048; 83735; 84443; 84484; 85025; 85027; 92960; 93010; 96374; 99235; 99284; 99285-25; J2250; J3490

== ENCOUNTER 2021-12-09 07:18 | Day surgery (SDC) | payer MEDICARE, OTHER ==
[~2021-12-09 07:18] MED LIST: Bupivacaine 0.5%/EPINEPHrine 1:200,000 50 ML MDV ONE; Meropenem 500 MG SDV ONE
[2021-12-09] MEDS ORDERED: Acetaminophen 500 MG Tab PO ONE (07:30)
[2021-12-09] MEDS ORDERED: Propofol 200 MG/20 ML SDV ONE (07:31)
[2021-12-09] MEDS ORDERED: Succinylcholine 200 MG/10 ML MDV ONE (07:31)
[2021-12-09] MEDS ORDERED: Glycopyrrolate 0.2 MG/ML 5 ML MDV ONE (07:31)
[2021-12-09] MEDS ORDERED: Neostigmine Methylsulfate 1 MG/ML 5 ML Syringe ONE (07:31)
[2021-12-09] MEDS ORDERED: Ondansetron 4 MG/2 ML SDV ONE (07:31)
[2021-12-09] MEDS ORDERED: Rocuronium 50 MG/5 ML Vial ONE (07:31)
[2021-12-09] MEDS ORDERED: Dexamethasone 4 MG/ML SDV ONE (07:31)
[2021-12-09] MEDS ORDERED: fentaNYL 250 MCG/5 ML SDV ONE (07:31)
[2021-12-09] MEDS ORDERED: ceFAZolin 1 GM Vial ONE (07:46)
[2021-12-09] MEDS: Dextrose 5%-Lactated Ringers 1,000 ML IV SCH ×2 (07:51→21:02)
[2021-12-09 08:13] LABS: ESTIMATED GFR 94 mL/min (>60)
[2021-12-09] MEDS ORDERED: ceFAZolin 2 GM in Sodium Chloride 0.9% 50 ML IV ONE (08:45)
[2021-12-09] MEDS ORDERED: Ketamine 500 MG/5 ML MDV IV SCH (09:00)
[2021-12-09] MEDS ORDERED: Ketamine 21 MG in Sodium Chloride 0.9% 19.79 ML IV SCH (09:00)
[2021-12-09] MEDS ORDERED: Linezolid 600 MG/300 ML Premix Bag IRR ONE (09:50)
[2021-12-09] MEDS ORDERED: Sugammadex Sodium 200 MG/2 ML VIAL ONE (09:57)
[2021-12-09] MEDS ORDERED: fentaNYL 100 MCG/2 ML SDV ONE (10:01)
[2021-12-09] MEDS ORDERED: hydrOXYzine HCL 100 MG/2 ML SDV IM ONE (10:21)
[2021-12-09] MEDS ORDERED: fentaNYL 50 MCG/ML SDV IVPUSH ONE (10:30)
[2021-12-09] MEDS ORDERED: diphenhydrAMINE 50 MG/ML SDV IVPUSH PRN (11:36)
[2021-12-09] MEDS ORDERED: HYDROmorphone 0.5 MG/0.5 ML Syringe IVPUSH PRN (11:46)
[2021-12-09] MEDS ORDERED: HYDROmorphone 1 MG/ML Syringe IV PRN (11:47)
[2021-12-09] MEDS ORDERED: Cyclobenzaprine 10 MG Tab PO PRN (11:51)
[2021-12-09] MEDS ORDERED: Ondansetron 4 MG/2 ML SDV IVPUSH PRN (11:53)
[2021-12-09] MEDS ORDERED: Amphetamine/Dextroamphetamine Salts 10 MG Tab PO PRN (11:56)
[2021-12-09] MEDS ORDERED: Pantoprazole 40 MG Vial IV SCH (14:00)
[2021-12-09] MEDS ORDERED: hydrOXYzine HCL 100 MG/2 ML SDV IM PRN (14:30)
[2021-12-09] MEDS: oxyCODONE 5 MG Tab PO PRN ×2 (16:51→21:01)
[2021-12-09] MEDS: Acetaminophen 500 MG Tab PO SCH ×2 (16:52→21:01)
[2021-12-09] MEDS: ceFAZolin 2 GM in Sodium Chloride 0.9% 50 ML IV SCH ×2 (16:52→23:35)
[2021-12-10] MEDS: Acetaminophen 500 MG Tab PO SCH ×2 (04:49→09:28)
[2021-12-10] MEDS: oxyCODONE 5 MG Tab PO PRN ×2 (05:52→09:51)
[2021-12-10] MEDS ORDERED: Magnesium Hydroxide 400 MG/5 ML Susp 30 ML Cup PO PRN (07:29)
[2021-12-10] MEDS: ceFAZolin 2 GM in Sodium Chloride 0.9% 50 ML IV SCH (07:36)
[2021-12-10] MEDS ORDERED: Diltiazem 120 MG Cap.CD PO SCH (09:00)
[2021-12-10] MEDS ORDERED: Aspirin 81 MG Tab.EC PO SCH (09:00)
[2021-12-11] MEDS ORDERED: Pantoprazole 40 MG Tab.CR PO SCH (11:30)
== END 2021-12-10 10:15 | disposition home or self-care (01) ==
LOC: JP.SDS 07:18 → JP.2SS 10:10 → JP.SDS 12-10 10:15
PROVIDERS: ATTEND Surgery
DX: K42.0 Umbilical hernia with obstruction, without gangrene (principal); K43.6 Other and unspecified ventral hernia with obstruction, without gangrene; K66.0 Peritoneal adhesions (postprocedural) (postinfection); G47.33 Obstructive sleep apnea (adult) (pediatric); I10 Essential (primary) hypertension; I48.0 Paroxysmal atrial fibrillation; Z79.899 Other long term (current) drug therapy; Z88.1 Allergy status to other antibiotic agents
CPT/HCPCS: 36415; 49653; 80053; 83735; 83880; 84100; 85027; 88302; 93005; A9270; C1781; C9113; J0171; J0690; J1100; J1170; J2020; J2185; J2405; J2704; J2710; J2795; J3010; J3410; J3490; J7121; J0330

== ENCOUNTER 2023-03-26 12:16 | Emergency (ER) | payer MEDICARE, OTHER | END 2023-03-26 14:24 | disposition home or self-care (01) | LOC: JP.ED 12:16 | DX: S63.502A Unspecified sprain of left wrist, initial encounter (principal); Z88.0 Allergy status to penicillin; Z79.82 Long term (current) use of aspirin; W01.0XXA Fall on same level from slipping, tripping and stumbling without subsequent striking against object, initial encounter | CPT/HCPCS: 73110-LT; 99283 ==